=== PATIENT | male | born 1950 | race Caucasian/White ===

== ENCOUNTER 2019-03-07 07:46 | Inpatient (IN) | payer MEDICARE, SELFPAY ==
[2019-03-02 08:21] VITALS: BP 136/80; PULSE 64; RESP 16; TEMP 36.3; O2SAT 97; BMI 36.6
--- NOTE | 2019-03-02 08:39 | SDCEKG_ITS ---
Test Reason : Blood Pressure : / mmHG Vent. Rate : 064 BPM Atrial Rate : 064 BPM P-R Int : 162 ms QRS Dur : 088 ms QT Int : 378 ms P-R-T Axes : 065 035 027 degrees QTc Int : 389 ms Normal sinus rhythm Normal ECG Confirmed by ISI DAVIS, KIERSTEN ([id number]), editorial specialist ALPHONSO MACHADO ([id number]) on 03/07/2019 10:34:47 AM Referred By: Osman Escalera Confirmed By:KIERSTEN SNOWDEN MD
--- NOTE | 2019-03-02 09:13 | RAD_ITS ---
STUDY: X-RAY CHEST REASON FOR EXAM: Male, 69 years old. Preoperative evaluation. TECHNIQUE: PA and lateral views of the chest. COMPARISON: Comparison is made with prior study dated February 19, 2017. FINDINGS: The previously seen right apical nodular density has been resected. There is mild tenting of the right hemidiaphragm. Mild increased markings at the lung bases suggest bibasilar scarring. There is no demonstrated pleural abnormality. Normal size heart. Normal mediastinum and ree. There is prominence of the pulmonary hilar arteries without peripheral pulmonary vascular congestion, suggesting pulmonary hypertension. Normal visualized aortic arch and descending thoracic aorta. Normal visualized thoracic spine. Normal visualized ribs, clavicles, and shoulders. There is no demonstrated abnormality of the visualized soft tissue structures of the upper abdomen. RAD/Chest PA and Lateral IMPRESSION: Status post right upper lobectomy. Stable mild scarring at the lung bases. Electronically Signed: Jase Villeda, at 9:46 EDT , Service support ,
[2019-03-02 09:48] LABS: Absolute Lymphocyte Count 2.17 X10^3/ul (0.83-4.51); Absolute Neutrophil Count 4.2 X10^3/uL (2.0-7.7); Basophil# 0.03 X10^3/uL; Basophil% 0.4 % (0-1); Eosinophil# 0.28 X10^3/uL; Eosinophils% 3.9 % (0-5); Hematocrit 41.2 % (40-54); Hemoglobin 13.9 g/dl (13.0-16.5); Lymphocyte # 2.17 X10^3/ul (4.0); Lymphocyte % 29.8 % (19-41); Mean Corp Hgb Conc 33.7 g/gl (32-36); Mean Corpuscular Volume 85.8 fL (80-94); Mean Platelet Vol. 9.6 fl (6.2-12.0); Monocyte# 0.59 X10^3/uL; Monocyte% 8.1 % (0-10); Neutrophil # 4.17 X10^3/uL (2.7-7.7); Neutrophil % 57.4 % (47-70); Platelet Count 178 K/mm3 (150-450); RBC Distribution Width CV 13.5 % (11.6-14.6); RBC Distribution Width SD 42.5 fl (35.1-43.9); White Blood Count 7.3 K/mm3 (4.4-11.0)
[2019-03-02 09:50] LABS: POSITIVE COUNT NO; POSITIVE DIFFERENTIAL NO; POSITIVE MORPHOLOGY NO
[2019-03-02 09:59] LABS: Prothrombin Time (Protime)PT. 13.2 SECONDS (11.7-14.9)
[2019-03-02 10:00] LABS: Partial Thromboplast Time 29.7 Seconds (24.1-36.2)
[2019-03-02 10:34] LABS: AST(SGOT) 13 U/L (15-37); Alanine Aminotransfer ALT/SGPT 21 U/L (16-61); Albumin, Serum 3.8 g/dL (3.2-5.0); Alkaline Phosphatase 60 U/L (45-117); Bilirubin, Direct 0.11 mg/dL (0.00-0.30); Globulin 3.4 g/dL (2.2-4.2); Protein, Total 7.2 g/dL (6.4-8.2)
--- NOTE | 2019-03-04 11:12 | CASEMGMT ---
Call placed to patient to discuss discharge needs after upcoming surgery. Patient plans to return home with assistance from . Patient is not sure if outpatient physical therapy is set up, will be calling a place in [place] today to check on it. will assist with transportation to/from physical therapy. Patient has a walker, has a handicapped accessible bathroom at home. Patient's home is a ranch style with bedroom and bathroom on one level. There is 1 step to enter home. Informed patient that Rn-CM will likely follow up after surgery. Susan Wall LPN Clinical Support
[2019-03-07] VITALS (11 sets, daily range): BP systolic 99–156; BP diastolic 61–77; PULSE 57–78; RESP 14–18; TEMP 36–37.2; O2SAT 95–100; BMI 36.6
--- NOTE | 2019-03-07 | KNEE_PTH ---
PATIENT: LUANA RIOS LOC: [facility]3 U#:[id number] AGE/SX: 69/M ROOM: ND324 RE03/07/[address]: Dr. Osman Escalera DO : 1950 BED: 1 DIS: 03/08/2019 SPEC #: [id number] RECD: 03/07/19 14:18 STATUS: ENRIQUE REQ #: [id number] VARSHA: 03/07/19 00:[address]: Osman Escalera DEPT: SURGICAL PATHOLOGY RECD BY: Kenyon Moffett ENTERED: 03/07/19 14:18 SP TYPE: TOTAL KNEE OTHR DR: Dr. João Velarde MD Tissues: Knee, NOS Procedures: Decalcification bone/plaque Surgery Specimen Level IV HEADER OPERATION: Total knee replacement PRE-OP DIAGNOSIS: Unilateral primary osteoarthritis, left knee TISSUE SUBMITTED: Left knee MICROSCOPIC DIAGNOSIS Bone and soft tissue of left knee, total knee resection: Severe degenerative joint disease. Mild synovial hyperplasia. Polarizable crystals consistent with pseudogout. AM:mello 03/10/19 MICROSCOPIC DESCRIPTION Slides are reviewed. GROSS DESCRIPTION Received is one container designated bone and soft tissue left knee. The specimen consists of multiple fragments of may-yellow bone measuring in aggregate 17 x 10 x 1.5 cm. Also in the specimen container are multiple fragments of yellow-white soft tissue measuring in aggregate 12 x 9 x 2 cm. A number of bony fragments contain articular surfaces consistent with tibial plateau and femoral condyle and displaying prominent osteophyte formation, eburnation, and bone erosion. City Planning Engineer sections are submitted in two cassettes as follows: 1 - soft tissue, 2 - bone after decalcification. / AM:mello 03/07/19 TC:5 [facility]: [id number], [id number]
[2019-03-07] MEDS: Acetaminophen 500 MG Tablet 1000 MG PO ×3 (08:36→21:35)
[2019-03-07] MEDS: Celecoxib 200 MG Capsule 400 MG PO (08:36)
[2019-03-07] MEDS: oxyCODONE HCl Cr 10 MG Tablet PO (08:37)
[2019-03-07 08:39] LABS: Anion Gap 7 (5-15); BUN 29 mg/dL (7-18); BUN/Creat Ratio 23.4 RATIO (10-20); Calcium,Total 9.6 mg/dL (8.5-10.1); Chloride 106 mmol/L (98-107); Creatinine, Serum 1.24 mg/dL (0.70-1.30); EST Glomerular Filtration Rate 62 mL/min (>60); Est Glom Filt Rate - Afr Amer 75 mL/min (>60); Estimated Creatinine Clearance 51.45 ml/min; Glucose 201 mg/dL (74-106); Sodium Level 140 mmol/L (136-145)
[2019-03-07 08:41] LABS: Bedside Glucose 215 mg/dL (70-110)
[2019-03-07] MEDS: Cefazolin 2 GM in 0.9% Normal Saline 100 ML IV (09:49)
--- NOTE | 2019-03-07 10:52 | PCM.OPRPT ---
Report of Operation Date of Procedure: 03/07/19 Pre-Operative Diagnosis: OA left knee Post-Operative Diagnosis: same Surgery/Procedure Performed:: Left TKR Type of Anesthesia:: Spinal Anesthesiologist: Bob Schmidt Specimen's removed: bone Estimated Blood Loss (mL): 25 cc Description of Procedure: Primary Surgeon/Physician: Osman Escalera television journalist: Cristhian Celeste PA-C television journalist: Pre-Operative Diagnosis: OA left knee Post-Operative Diagnosis: same Surgery/Procedure Performed: Left TKR Estimated Blood Loss: 25 cc Specimen's Removed: bone Type of Anesthesia: spinal ASA Class: 3 Implants: [Sara Triathlon size 5 CR femur, size 5 tibia, 11 mm polyethylene, 38 mm patella ] Indications: Patient has severe end-stage osteoarthritis diagnosed via x-rays in the knee. They have failed all forms of conservative measures including activity modification, injections, anti-inflammatories, use of assistive device. The patient has pain that affects on a daily basis and prevents him from doing things that they enjoyed. They have elected to undergo the above procedure. The risks of the procedure were discussed at length and their questions were answered. Procedure Description: The patient was greeted in the preoperative area. The [left knee ] knee was then marked with a surgical marker. Patient was then taken to or Suite 2. They were administered a dose of antibiotics as well as tranexamic acid. Once adequate anesthesia was obtained and airway was secured to placed in supine position on the operating room table. A well-padded tourniquet was placed on the affected extremity. Leg was then prepped and draped in the usual sterile fashion from the knee down. Ioban was used on the skin. Surgical timeout was then performed and confirmed with all present. Six-inch Esmarch was used to examine the limb and tourniquet was then inflated to 250 mmHg. A longitudinal incision was then planned and carried out in the anterior aspect of the knee. The dissection was then carried the length of the incision the extensor mechanism was identified. Standard medial parapatellar arthrotomy was then performed revealing severe eburnation of bone and periarticular osteophytes. There is complete loss of cartilage especially in the medial compartment with varus alignment. Anterior fat pad was removed for visualization purposes and the anterior medial aspect of the tibia was skeletonized for exposure to the knee. The knee was then flexed the patella was inverted. Opening reamer was then used in the femur approximately 1 cm anterior to the attachment of the PCL. The intramedullary valgus wand was then placed in the femur set at 5? of valgus. The distal femoral cutting jig was then applied to the femur with anticipated resection of approximately 8 mm. This was then made with a oscillating saw. The sizing guide was then placed referencing off the posterior condyles and also reference off the epicondylar axis. This was measured and the appropriate size 4-in-1 cutting jig was then applied to the distal femur. Anterior posterior cuts were made followed by the anterior and posterior chamfer cuts. These bony pieces and fragments were removed and placed on the back table. Posterior retractor was then utilized and the tibia was subluxed anteriorly. Intramedullary tibial alignment jig was then applied to the tibia referencing off the medial one third of the tibial tubercle the anterior tibial spine the middle aspect of the tibiotalar joint. Also reference off patient's [place] slope. The tibial cutting jig was then pinned with anticipated resection of 2 mm off of the deficient medial tibial condyle. This cut was made with the oscillating saw. Once this was complete a laminar crystalizer operator was utilized in both medial lateral meniscus were removed and a posterior capsular osteophytes were also removed. Posterior capsule release was performed in the posterior capsule as well as the geniculate arteries are treated with the aqua Sheila. The tibia was incised and the appropriate sized tibial tray was then pinned. The femoral trial was then placed and the knee was trialed. Full flexion-extension were easily achieved. The knee seemed to balance quite nicely. Any remaining osteophytes were removed at this time. Once this was complete the patella was everted and the Liz patella reaming device was then utilized the patella was then placed in the appropriate jig and reamer was then used to remove approximately 9 mm of the undersurface of the patella. A soft tissue remaining was in the way was removed and patella trial was then placed listed maintain excellent tracking using the no thumbs technique. The tibial tray at this point was punched to accommodate the fins of the final implant. At this point cement was mixed on the back table. The trial components were removed and the knee was copiously irrigated. Did use a cocktail of injection for postoperative pain control. The final components were then cemented in the standard fashion and excess cement was removed with cement removal tools and patellar clamp is placed in the patella. As the cement had cured in full extension tourniquet was deflated and hemostasis was perfect with Bovie cautery as well as the aqua Manus. Knee is once again trialed with different size polyethylenes to ensure the full range of motion was achieved as well as excellent balancing ligamentously was achieved. At this point the knee was copiously irrigated. Final implant was then inserted locking mechanism was engaged and confirmed to be locked. The arthrotomy was then closed with #1 Vicryl aggravate type fashion interrupted. Subcutaneous tissue was closed with 0 Vicryl and surgical jolynn were placed in the skin. A occlusive silver impregnated dressing was then applied followed by well-padded sterile dressing secured with an Aiden wrap. The patient was taken to the PACU in stable condition. No complications known at this time. Postoperatively we will maintain standard total knee postoperative protocol. The use of the physician zoning assistant was integral during this procedure. They assisted with positioning placement of the tourniquet retracting closure and placement of the dressing. The procedure would have been much more difficult without their expertise and assistance - Admit VTE Documentation VTE Present on Admission: No VTE Mechan Device Prophylaxis: SCD's, Thigh High OBI Hose VTE Pharm Prophylaxis ordered?: Yes
--- NOTE | 2019-03-07 10:59 | OP.PCM_ITS ---
Report of Operation Date of Procedure: 03/07/19 Pre-Operative Diagnosis: OA left knee Post-Operative Diagnosis: same Surgery/Procedure Performed:: Left TKR Type of Anesthesia:: Spinal Anesthesiologist: Bob Schmidt Specimen's removed: bone Estimated Blood Loss (mL): 25 cc Description of Procedure: Primary Surgeon/Physician: Osman Escalera acetylene cutter: Cristhian Celeste PA-C acetylene cutter: Pre-Operative Diagnosis: OA left knee Post-Operative Diagnosis: same Surgery/Procedure Performed: Left TKR Estimated Blood Loss: 25 cc Specimen's Removed: bone Type of Anesthesia: spinal ASA Class: 3 Implants: [Sara Triathlon size 5 CR femur, size 5 tibia, 11 mm polyethylene, 38 mm patella ] Indications: Patient has severe end-stage osteoarthritis diagnosed via x-rays in the knee. They have failed all forms of conservative measures including activity modification, injections, anti-inflammatories, use of assistive device. The patient has pain that affects on a daily basis and prevents him from doing things that they enjoyed. They have elected to undergo the above procedure. The risks of the procedure were discussed at length and their questions were answered. Procedure Description: The patient was greeted in the preoperative area. The [left knee ] knee was then marked with a surgical marker. Patient was then taken to or Suite 2. They were administered a dose of antibiotics as well as tranexamic acid. Once adequate anesthesia was obtained and airway was secured to placed in supine position on the operating room table. A well-padded tourniquet was placed on the affected extremity. Leg was then prepped and draped in the usual sterile fashion from the knee down. Ioban was used on the skin. Surgical timeout was then performed and confirmed with all present. Six- inch Esmarch was used to examine the limb and tourniquet was then inflated to 250 mmHg. A longitudinal incision was then planned and carried out in the anterior aspect of the knee. The dissection was then carried the length of the incision the extensor mechanism was identified. Standard medial parapatellar arthrotomy was then performed revealing severe eburnation of bone and periarticular osteophytes. There is complete loss of cartilage especially in the medial compartment with varus alignment. Anterior fat pad was removed for visualization purposes and the anterior medial aspect of the tibia was skeletonized for exposure to the knee. The knee was then flexed the patella was inverted. Opening reamer was then used in the femur approximately 1 cm anterior to the attachment of the PCL. The intramedullary valgus wand was then placed in the femur set at 5? of valgus. The distal femoral cutting jig was then applied to the femur with anticipated resection of approximately 8 mm. This was then made with a oscillating saw. The sizing guide was then placed referencing off the posterior condyles and also reference off the epicondylar axis. This was measured and the appropriate size 4-in-1 cutting jig was then applied to the distal femur. Anterior posterior cuts were made followed by the anterior and posterior chamfer cuts. These bony pieces and fragments were removed and placed on the back table. Posterior retractor was then utilized and the tibia was subluxed anteriorly. Intramedullary tibial alignment jig was then applied to the tibia referencing off the medial one third of the tibial tubercle the anterior tibial spine the middle aspect of the tibiotalar joint. Also reference off patient's [place] slope. The tibial cutting jig was then pinned with anticipated resection of 2 mm off of the deficient medial tibial condyle. This cut was made with the oscillating saw. Once this was complete a laminar oceanologist was utilized in both medial lateral meniscus were removed and a posterior capsular osteophytes were also removed. Posterior capsule release was performed in the posterior capsule as well as the geniculate arteries are treated with the aqua Sheila. The tibia was incised and the appropriate sized tibial tray was then pinned. The femoral trial was then placed and the knee was trialed. Full flexion-extension were easily achieved. The knee seemed to balance quite nicely. Any remaining osteophytes were removed at this time. Once this was complete the patella was everted and the Liz patella reaming device was then utilized the patella was then placed in the appropriate jig and reamer was then used to remove approximately 9 mm of the undersurface of the patella. A soft tissue remaining was in the way was removed and patella trial was then placed listed maintain excellent tracking using the no thumbs technique. The tibial tray at this point was punched to accommodate the fins of the final implant. At this point cement was mixed on the back table. The trial components were removed and the knee was copiously irrigated. Did use a cocktail of injection for postoperative pain control. The final components were then cemented in the standard fashion and excess cement was removed with cement removal tools and patellar clamp is placed in the patella. As the cement had cured in full extension tourniquet was deflated and hemostasis was perfect with Bovie cautery as well as the aqua Manus. Knee is once again trialed with different size polyethylenes to ensure the full range of motion was achieved as well as excellent balancing ligamentously was achieved. At this point the knee was copiously irrigated. Final implant was then inserted locking mechanism was engaged and confirmed to be locked. The arthrotomy was then closed with #1 Vicryl aggravate type fashion interrupted. Subcutaneous tissue was closed with 0 Vicryl and surgical jolynn were placed in the skin. A occlusive silver impregnated dressing was then applied followed by well-padded sterile dressing secured with an Aiden wrap. The patient was taken to the PACU in stable condition. No complications known at this time. Postoperatively we will maintain standard total knee postoperativ e protocol. The use of the physician endodontic assistant was integral during this procedure. They assisted with positioning placement of the tourniquet retracting closure and placement of the dressing. The procedure would have been much more difficult without their expertise and assistance - Admit VTE Documentation VTE Present on Admission: No VTE Mechan Device Prophylaxis: SCD's, Thigh High OBI Hose VTE Pharm Prophylaxis ordered?: Yes
[2019-03-07] MEDS: Lactated Ringers 1,000 ML 125 ML IV (12:00)
[2019-03-07 12:41] LABS: Bedside Glucose 182 mg/dL (70-110)
[2019-03-07] MEDS: oxyCODONE 5 MG Tablet PO (15:59)
[2019-03-07] MEDS: Cefazolin 1 GM/50 ML BAG IV (17:17)
[2019-03-07] MEDS: Senna/Docusate Sodium 1 Tablet 2 TABLET PO (21:35)
[2019-03-07] MEDS: Aspirin 325 MG Tablet PO (21:35)
[2019-03-07] MEDS: Carvedilol 25 MG Tablet PO (21:36)
[2019-03-08] MEDS: Cefazolin 1 GM/50 ML BAG IV (01:11)
[2019-03-08 04:01] VITALS: BP 126/69; PULSE 75; RESP 18; TEMP 36.6; O2SAT 93
[2019-03-08] MEDS: Acetaminophen 500 MG Tablet 1000 MG PO (05:41)
[2019-03-08 07:46] LABS: Hematocrit 37.7 % (40-54); Hemoglobin 12.7 g/dl (13.0-16.5); Mean Corp Hgb Conc 33.7 g/gl (32-36); Mean Corpuscular Hgb 28.7 pg (27.0-32.0); Mean Corpuscular Volume 85.1 fL (80-94); Mean Platelet Vol. 9.6 fl (6.2-12.0); Platelet Count 165 K/mm3 (150-450); RBC Distribution Width CV 13.5 % (11.6-14.6); RBC Distribution Width SD 41.8 fl (35.1-43.9); Red Blood Count 4.43 M/mm3 (4.6-6.2); White Blood Count 9.4 K/mm3 (4.4-11.0)
--- NOTE | 2019-03-08 07:48 | PN.ORTHO_ITS ---
Subjective: Patient sitting at bedside eating breakfast. Patient states pain is well managed. Denies chest pain, shortness of breath, calf pain, nausea vomiting. Has no other Complaints and ready for discharge home today Objective: Dressings clean dry intact, negative signs or symptoms of DVT. Vital signs normal limits. Labs are still pending. Patient is afebrile, neurovascular is otherwise intact. Patient is speaking in full sentences, with no respiratory distress. - Physical Exam General: Alert, Oriented x3 HEENT: PERRLA Oral: Moist Mucosa Neurological: Cranial nerves II-XII grossly intact Psych/Mental Status: Normal Affect, Alert and oriented to time, place, person, mood and affect Vital Signs Temp Pulse Resp BP Pulse Ox 97.9 F 75 18 126/69 H 93 03/08/19 04:01 03/08/19 04:01 03/08/19 04:01 03/08/19 04:01 03/08/19 04:01 Oxygen Flow Rate (L/min) 8 Oxygen Delivery Method Room Air Weight: 104.326 kg Body Mass Index (BMI) 36.6 Finger Stick Blood Glucose 182 Intake and Output for Last 24 Hours 03/06/19 03/07/19 03/08/19 23:59 23:59 23:59 Intake Total 3550 / 3550 700 / 700 Output Total 800 / 800 600 / 600 Balance 2750 / 2750 100 / 100 Laboratory Tests Past 24 Hrs 03/07/19 03/08/19 03/08/19 08:18 07:05 07:05 WBC Pending RBC Pending Hgb Pending Hct Pending MCV Pending MCH Pending MCHC Pending RDW Pending RDW Differential Pending Plt Count Pending Sodium 140 Pending Potassium 4.0 Pending Chloride 106 Pending Carbon Dioxide 27.0 Pending Anion Gap 7 Pending BUN 29 H Pending Creatinine 1.24 Pending Estim Creat Clear Calc 51.45 Est GFR (MDRD) Af Amer 75 Pending Est GFR (MDRD) Non-Af 62 Pending BUN/Creatinine Ratio 23.4 H Pending Glucose 201 H Pending Calcium 9.6 Pending POC Glucose 03/07/19 03/07/19 12:32 08:24 POC Glucose 182 H 215 H Medical Necessity - Tobacco Use Smoking Status: Former smoker Assessment/Plan Status post left total knee arthroplasty Plan 1. Continue all pain medications as prescribed 2. Continue physical therapy today with weightbearing as tolerated with walker. 3. Aspirin 325 mg 1 p.o. every 12 hours times 30 days for postop DVT prophylaxis 4. Encourage incentive spirometry 5. Follow-up as scheduled see pink sheet 6. Discharge home today after p.m. therapy 7. Patient will continue outpatient physical therapy in [place]
--- NOTE | 2019-03-08 07:52 | DCINST_ITS ---
Discharge Diet: No Restrictions Discharge Activity: May Not Drive, May Shower, Use Walker May shower in (days): 2 Ice area for (Minutes): 20 - each hour while awake. Weight Bearing Status: Weight bearing as tolerated Elevate: Operative Extremity Additional Activity Instructions:: Wear elastic stockings for 2 weeks after your surgery. Call your doctor if your incision/area has: Continuous Slow Oozing, Sudden Increased Bleeding, Increased Pain/ Swelling, Increased Redness, Foul Smelling Discharge Call your doctor if you observe: Fever of 101 or Higher, Coldness, Increased Pain - in extremity, Numbness or Tingling, Change in Color, Calf discomfort, Uncontrolled pain Change Dressing in (Days):: 0 - and daily as needed. Remove Dressing in (days):: 8 Cleanse incision/area with: Soap & Water Allergies/Adverse Reactions: Allergies No Known Allergies Allergy (Verified 03/02/19 08:13) Medications to take at Discharge Amlodipine Besylate [Norvasc] 10 mg PO DAILY 02/19/17 Metformin HCl [Glucophage] 1,000 mg PO BIDCM 02/19/17 Carvedilol [Coreg (Beta Sophia)] 25 mg PO BID 03/02/19 Glimepiride [Amaryl] 8 mg PO DAILY 03/02/19 Indapamide [Lozol] 2.5 mg PO DAILY 03/02/19 Lisinopril [Zestril] 40 mg PO DAILY 03/02/19 Losartan Potassium [Cozaar] 100 mg PO DAILY 03/02/19 Pioglitazone HCl 30 mg PO DAILY 03/02/19 Acetaminophen [Tylenol] 1,000 mg PO Q8 #90 tab 03/08/19 Aspirin 325 mg PO BID #60 tab 03/08/19 Oxycodone [Oxyir] 5 - 10 mg PO Q4H PRN PRN 7 Days #90 tab 03/08/19 The following prescriptions were given: Oxycodone [Oxyir] 5 - 10 mg PO Q4H PRN PRN 7 Days #90 tab PRN Reason: Mod-Severe Pain (4-08/25) Acetaminophen [Tylenol] 1,000 mg PO Q8 #90 tab Aspirin 325 mg PO BID #60 tab Primary Care Physician: João Velarde MD [Primary Care Provider] - Test Results: Test results from this visit will be discussed in further detail at your follow- up appointment, if applicable. Please Follow Up With: Cristhian Celeste PA-C When: see pink sheet
[2019-03-08 07:54] LABS: Scan Indicated on CBC? Y/N NO
[2019-03-08] MEDS: Aspirin 325 MG Tablet PO (07:56)
[2019-03-08] MEDS: Pioglitazone Hydrochloride 30 MG Tablet PO (07:56)
[2019-03-08] MEDS: Glimepiride 4 MG Tablet 8 MG PO (07:59)
[2019-03-08 08:22] LABS: Anion Gap 8 (5-15); BUN 18 mg/dL (7-18); BUN/Creat Ratio 17.1 RATIO (10-20); Calcium,Total 8.8 mg/dL (8.5-10.1); Chloride 104 mmol/L (98-107); Creatinine, Serum 1.05 mg/dL (0.70-1.30); EST Glomerular Filtration Rate 75 mL/min (>60); Est Glom Filt Rate - Afr Amer 90 mL/min (>60); Estimated Creatinine Clearance 60.76 ml/min; Glucose 171 mg/dL (74-106); Potassium 3.6 mmol/L (3.5-5.1); Sodium Level 139 mmol/L (136-145)
[2019-03-08 10:00] VITALS: BP 141/75; PULSE 73; RESP 16; TEMP 36.2; O2SAT 96
[2019-03-08] MEDS: Lisinopril 40 MG Tablet PO (10:31)
[2019-03-08] MEDS: Losartan Potassium 100 MG Tablet PO (10:31)
[2019-03-08] MEDS: Indapamide 2.5 MG Tablet PO (10:32)
[2019-03-08] MEDS: amLODIPine 10 MG Tablet PO (10:32)
[2019-03-08] MEDS: Carvedilol 25 MG Tablet PO (10:35)
[2019-03-08] MEDS: oxyCODONE 5 MG Tablet PO (10:35)
--- NOTE | 2019-03-08 10:40 | CASEMGMT ---
SARANYA FREGOSO Face to Face with patient for initial transition planning/care coordination assessment. RN ZENOBIA introduced self and role at [facility]. Patient lying in bed, alert and oriented. Patient willing to participate in assessment and is able to answer all questions appropriately. Care providers, pharmacy, and demographics verified. Patient wishes to discharge home with outpatient therapy at [facility] in [place] with family providing transportation. Patient has cane, walker, shower chair, and raised toilet at home. Patient states he has no further needs or concerns at this time. CM to follow for discharge planning needs that may arise. Disposition Plan: Patient to discharge home with outpatient therapy, family support, and follow-up plans in place. Olinda ALEXANDER, RN, CM
[2019-03-08 13:30] VITALS: BP 141/75; PULSE 73; RESP 16; TEMP 36.2; O2SAT 96
== END 2019-03-08 13:52 | disposition home or self-care (01) | DRG 470 ==
PROVIDERS: Anesthesiology; Admitting Provider Orthopaedic Surgery; Referring Provider Orthopaedic Surgery; Visit Provider Orthopaedic Surgery
PROC: 0SRD0J9 Replacement of Left Knee Joint with Synthetic Substitute, Cemented, Open Approach (ICD-10-PCS; CPT 27447; principal; 2019-03-07 09:20)
DX: M17.12 Unilateral primary osteoarthritis, left knee (principal); I10 Essential (primary) hypertension; E11.9 Type 2 diabetes mellitus without complications; Z79.84 Long term (current) use of oral hypoglycemic drugs
CPT/HCPCS: 36415; 71046; 80048; 80076; 82962; 85025; 85027; 85610; 85730; 87081; 88305; 88311; 93005; 97110; 97161; 97166; 97530; C1776; J7120; A4216

== ENCOUNTER 2019-04-30 15:07 | Emergency (ER) | payer MEDICARE, SELFPAY ==
[2019-03-07 13:22] VITALS: BMI 36.6
[2019-04-30 15:10] VITALS: BP 159/78; PULSE 103; RESP 22; TEMP 37.9; O2SAT 92; BMI 35.6
[2019-04-30 15:20] VITALS: PULSE 107; RESP 14; TEMP 37.9
[2019-04-30 15:25] VITALS: BP 148/82; PULSE 101; RESP 23; O2SAT 91
--- NOTE | 2019-04-30 15:27 | ED.VISSUMM ---
- ER Visit Summary Date of Service: 04/30/19 Chief Complaint: Fever, chills and intermittent nausea and vomiting for 6 days History of Present Illness: The patient is a 69 M history of diabetes and hypertension. Prior prostate CA treated with brachii therapy. Also lung CA treated with partial lobectomy. Dolores was admitted to the hospital overnight for a right knee replacement. States is been using around 9 Motrin a day. Which he stopped taken yesterday. Since Thursday he has had intermittent nausea and vomiting. Fever and chills. Fever as high as 102.5 degrees. Denies any diarrhea. Denies dysuria but states he is peeing more frequently. Denies any abdominal pain. Mild cough no shortness of breath. No chest pain. Physical Examination: Older male vital signs are stable he does have a low-grade fever currently of 100.3 degrees. He does not look septic or toxic. He is in no distress. at bedside. HEENT exam unremarkable. Neck nontender no lymphadenopathy. Lungs clear to auscultation bilaterally. Heart regular rhythm no murmur rate about 100. Abdomen soft nontender normal bowel sounds no peritoneal signs. He is moving all 4 extremities. Nontender. Back nontender. Skin no rashes. Neurologically is awake and alert with no focal motor deficits. Test Results: CBC shows a white count of 10. Hemoglobin of 11 g a chronic anemia. Electrolytes sodium of 127. Potassium of 3.1. Gap is 7 creatinine 1.1. Liver enzymes are normal. PT/INR PTT normal. UA shows 25-50 white cells no red cells no epithelial cells 4+ bacteria. Consistent with a UTI. Culture sent. Lactic acid normal 1.3. EKG sinus rhythm rate of 95 no ischemia. Chest x-ray 2 views read both of myself and the radiologist shows no acute abnormality. Emergency Department Course and Treatment: Patient be treated with a liter normal saline. He will be worked up for an infectious etiology. Cultures will be obtained. Multiple repeat exam the patient is doing well. We did a bladder scan post voiding it over 600 cc of urine. A Romero catheter was placed. Due to his urinary retention. He has a urologist he sees in [place]. Patient is doing well. BMP unremarkable pending discharge to home. Treatment Plan: Keflex 500 4 times daily for 10 days. Follow-up with his primary care physician. Follow-up with his urologist. Disposition: Discharge Impression: Acute fever and chills Urinary tract infection Acute urinary retention Romero catheter placed by RN Mild hyponatremia This note was generated with [employer] dictation software. It may contain incorrect words, spelling, and punctuation that were not noted in review of the chart prior to signing ED Disposition - Plan for ED Patient: Referrals: João Velarde MD [Primary Care Provider] -
[2019-04-30] MEDS: 0.9% Normal Saline 1,000 ML 999 ML IV (15:33)
[2019-04-30 15:36] LABS: Absolute Lymphocyte Count 1.13 X10^3/ul (0.83-4.51); Basophil# 0.03 X10^3/uL; Basophil% 0.3 % (0-1); Eosinophil# 0.02 X10^3/uL; Eosinophils% 0.2 % (0-5); Hemoglobin 11.6 g/dl (13.0-16.5); Lymphocyte # 1.13 X10^3/ul (4.0); Lymphocyte % 10.8 % (19-41); Mean Corp Hgb Conc 34.1 g/gl (32-36); Mean Corpuscular Hgb 27.6 pg (27.0-32.0); Mean Corpuscular Volume 80.8 fL (80-94); Mean Platelet Vol. 8.8 fl (6.2-12.0); Monocyte# 1.25 X10^3/uL; Neutrophil # 7.98 X10^3/uL (2.7-7.7); Neutrophil % 76.3 % (47-70); Platelet Count 213 K/mm3 (150-450); RBC Distribution Width CV 13.9 % (11.6-14.6); Red Blood Count 4.21 M/mm3 (4.6-6.2); White Blood Count 10.5 K/mm3 (4.4-11.0)
--- NOTE | 2019-04-30 15:36 | RAD_ITS ---
STUDY: X-RAY CHEST REASON FOR EXAM: Male, 69 years old. Cough and nausea TECHNIQUE: PA and lateral views of the chest. COMPARISON: 03/02/2019 FINDINGS: EKG leads project over the chest. There are interstitial fibrotic changes of the lungs. No airspace consolidation. There is no demonstrated pleural abnormality. Normal size heart. Normal mediastinum and ree. Normal visualized pulmonary arteries. Normal visualized aortic arch and descending thoracic aorta. Normal visualized thoracic spine. Normal visualized ribs, clavicles, and shoulders. There is no demonstrated abnormality of the visualized soft tissue structures of the upper abdomen. RAD/Chest PA and Lateral IMPRESSION: No airspace consolidation or pleural effusion. Stable exam. Electronically Signed: Vinnie Aguilar MD at 15:49 EDT , Service support ,
[2019-04-30 15:37] LABS: POSITIVE COUNT NO; POSITIVE DIFFERENTIAL NO; POSITIVE MORPHOLOGY NO
[2019-04-30 15:42] LABS: International Normalized Ratio 1.2; Prothrombin Time (Protime)PT. 14.7 SECONDS (11.7-14.9)
[2019-04-30 15:43] LABS: Partial Thromboplast Time 31.6 Seconds (24.1-36.2)
[2019-04-30 15:52] LABS: ALB/GLOB Ratio 0.8 RATIO (0.9-2.4); AST(SGOT) 19 U/L (15-37); Alanine Aminotransfer ALT/SGPT 30 U/L (16-61); Albumin, Serum 3.4 g/dL (3.2-5.0); Alkaline Phosphatase 70 U/L (45-117); Anion Gap 7 (5-15); BUN 24 mg/dL (7-18); BUN/Creat Ratio 21.2 RATIO (10-20); Calcium,Total 9.6 mg/dL (8.5-10.1); Chloride 92 mmol/L (98-107); Creatinine, Serum 1.13 mg/dL (0.70-1.30); EST Glomerular Filtration Rate 69 mL/min (>60); Est Glom Filt Rate - Afr Amer 83 mL/min (>60); Estimated Creatinine Clearance 60.53 ml/min; Glucose 239 mg/dL (74-106); Potassium 3.1 mmol/L (3.5-5.1); Protein, Total 7.4 g/dL (6.4-8.2); Sodium Level 127 mmol/L (136-145)
[2019-04-30 15:59] LABS: Lactic Acid 1.3 mmol/L (0.4-2.0)
--- NOTE | 2019-04-30 16:06 | EKG12_ITS ---
Test Reason : NAUSEA Blood Pressure : / mmHG Vent. Rate : 095 BPM Atrial Rate : 095 BPM P-R Int : 152 ms QRS Dur : 086 ms QT Int : 338 ms P-R-T Axes : 038 -01 008 degrees QTc Int : 424 ms Normal sinus rhythm Inferior infarct , age undetermined Abnormal ECG Confirmed by KYUNG DAVIS, GRAHAM ([id number]), acquisitions editor ALPHONSO MACHADO ([id number]) on 05/03/2019 9:33:06 AM Referred By: ROSANNA Confirmed By:GRAHAM TRACEY MD
[2019-04-30 16:30] LABS: Mucous, Urine 0 SEEN /hpf (<or=2+)
[2019-04-30 16:33] LABS: Color, Urine Yellow (Yellow); Glucose, Dipstick 250 mg/dl (Normal); Ketone-Dipstick Negative (Negative); Leukocyte Esterase-Dipstick 500 /ul (Negative); Nitrite-Dipstick Negative (Negative); Occult Blood-Urine 50 /ul (Negative); Protein-Dipstick 15 mg/dl (Negative); Urine Bilirubin Dipstick Negative (Negative); Urine Clarity Sl. Cloudy (Clear); Urine Urobilinogen Normal (Normal)
[2019-04-30 16:48] LABS: Bacteria 4+ /hpf (None Seen); Red Blood Cells-Urine 0-5 SEEN /hpf (0-5); Squamous Epithelial Cells - UA 0-5 SEEN /hpf (0-5); White Blood Cells 25-50 SEEN /hpf (0-5)
[2019-04-30] MEDS: Ceftriaxone 1 GM/50 ML BAG IV (17:54)
[2019-04-30 17:55] VITALS: BP 164/87; PULSE 93; RESP 20; TEMP 37.7; O2SAT 94
--- NOTE | 2019-04-30 18:41 | ED.DEP ---
ED Disposition - Plan for ED Patient: Disposition: Home or Assisted Living Instructions: ED UTI Cystitis Male, ED Retention Urinary Male Prescriptions: Cephalexin [Keflex] 500 mg PO Q6 #40 cap Referrals: João Velarde MD [Primary Care Provider] - As soon as possible Additional Instructions: Follow-up with your urologist due to the urinary retention. Empty Romero catheter whenever half or full. Keflex 1 pill 4 times a day is the antibiotic for your urinary tract infection. Finish the prescription. Plenty of fluids and rest. Follow-up with your doctor this week if you are feeling worse return to the emergency department to be reevaluated and possibly admitted.
[2019-04-30] MEDS: Cephalexin 250 MG Capsule 500 MG PO (18:52)
[2019-04-30 18:54] VITALS: BP 151/85; PULSE 93; RESP 18; O2SAT 98
== END 2019-04-30 19:06 | disposition home or self-care (01) ==
PROVIDERS: Emergency Provider Emergency Medicine
DX: N39.0 Urinary tract infection, site not specified (principal); R50.9 Fever, unspecified; R33.9 Retention of urine, unspecified; E87.1 Hypo-osmolality and hyponatremia; I10 Essential (primary) hypertension; E11.9 Type 2 diabetes mellitus without complications; Z79.84 Long term (current) use of oral hypoglycemic drugs; Z79.899 Other long term (current) drug therapy
CPT/HCPCS: 51702; 71046; 80053; 81001; 83605; 85025; 85610; 85730; 87040; 87077; 87086; 87088; 87186; 93005; 96361; 96365; 99285; J7030; J7040; A4216

== ENCOUNTER 2019-05-01 10:28 | Emergency (ER) | payer MEDICARE, SELFPAY ==
[2019-04-30 15:10] VITALS: BMI 35.6
[2019-05-01 10:29] VITALS: BP 105/66; PULSE 92; RESP 14; TEMP 36.3; O2SAT 94; BMI 33.6
--- NOTE | 2019-05-01 11:14 | ED.VIS.GEN ---
History of Present Illness Chief Complaint: Complaint Informant: Patient Current Severity: Mild Narrative: The patient was seen yesterday in the emergency department for fever he was found to have a UTI he was treated per family with IV medications, Keflex, he went home he is been feeling fine all day today and then subsequently his blood culture came back for anaerobic lactose fermenting rods x1 set and he was asked to come back to the hospital. 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, he is not prone to infection or UTIs yesterday after ED therapy he felt better and wanted to go home Past Medical History - Allergies and Home Meds Allergies/Adverse Reactions: Allergies No Known Allergies Allergy (Verified 05/01/19 10:33) Primary Care Physician: João Veladre MD [Primary Care Provider] - Surgical History: noncontributory Smoking Status: Never smoker Review of Systems General: Denies: Chills, Fever, Sweats Eyes: Denies: Visual changes - bilaterally, Diplopia ENT: Denies: Rhinorrhea, Sore throat Cardiovascular: Denies: Chest pain, Palpitations Respiratory: Denies: Dyspnea, Cough, Dyspnea on exertion Gastrointestinal: Denies: Abdominal pain, Nausea, Vomiting, Diarrhea, Melena, Hematochezia Genitourinary: Denies: Dysuria, Hematuria, Frequency Musculoskeletal: Denies: Back pain, Extremity Pain Skin: Denies: Rash, Wounds Neurological: Denies: Headache, Weakness, Numbness Physical Exam Vital Signs/Narrative: Vital Signs Temp Pulse Resp BP Pulse Ox 05/01/19 10:29 97.4 F L 92 14 105/66 94 General: Well nourished, Well developed, No Acute Distress Head: Normocephalic, Atraumatic Eyes: Perrl, EOMI ENT: Moist mucous membranes, No rhinorrhea Neck: Supple, Nontender Cardiovascular: Regular rate, Regular rhythm, No murmurs Respiratory: No distress, CTA bilaterally, Chest nontender Abdomen: Soft, Nontender, Nondistended, Normal bowel sounds Back: Nontender, Normal Inspection Extremities: Nontender, No edema Skin: Normal color, No rash Neurological: Alert, Oriented x3, Cranial nerves II-XII grossly intact, Normal Strength, Normal Sensation Psychological: Normal affect, Normal Mood Diagnostic/Tx/Re-eval - Medical Decision Making Clinically patient looks well there is no signs of sepsis he states she is doing well at home the 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 differential is wide and includes Bacteroides see those reports specific bacteria and cultures are not available given all the above screening labs lactate repeat cultures IV antibiotics Patient screening labs are unremarkable except his UA continues to show signs of UTI repeat blood and urine cultures obtained he was treated with IV Zosyn and metronidazole, he remained stable here in the department his lactate is negative, at this point time we have asked the hospitalist to see the patient for admission, final disposition once seen by hospitalist Final impression Bacteremia Urinary tract infection Addendum the patient was seen by the hospitalist and the decision was made the Patient can be managed as an outpatient they have asked that he stay on the Keflex, given the wide differential of the anaerobic gram-negative silvia we will add to the Keflex Flagyl 500 3 times daily and have explained to the patient that should his symptoms change or intensified anyway he should return immediately and he should anticipate seeing his outpatient providers tomorrow he agrees to this plan ED Disposition - Plan for ED Patient: Instructions: ED UTI Cystitis Male Prescriptions: Cephalexin [Keflex] 500 mg PO Q6 #56 capsule metroNIDAZOLE [Flagyl] 500 mg PO Q8H #21 tab Referrals: João Velarde MD [Primary Care Provider] -
[2019-05-01 11:21] LABS: Absolute Lymphocyte Count 2.31 X10^3/ul (0.83-4.51); Absolute Neutrophil Count 6.9 X10^3/uL (2.0-7.7); Basophil# 0.03 X10^3/uL; Basophil% 0.3 % (0-1); Eosinophil# 0.06 X10^3/uL; Eosinophils% 0.6 % (0-5); Hematocrit 34.7 % (40-54); Hemoglobin 11.8 g/dl (13.0-16.5); Lymphocyte # 2.31 X10^3/ul (4.0); Lymphocyte % 21.2 % (19-41); Mean Corpuscular Hgb 27.4 pg (27.0-32.0); Mean Corpuscular Volume 80.7 fL (80-94); Mean Platelet Vol. 9.2 fl (6.2-12.0); Monocyte% 13.8 % (0-10); Neutrophil # 6.92 X10^3/uL (2.7-7.7); Neutrophil % 63.5 % (47-70); Platelet Count 222 K/mm3 (150-450); RBC Distribution Width CV 14.1 % (11.6-14.6); RBC Distribution Width SD 41.5 fl (35.1-43.9); White Blood Count 10.9 K/mm3 (4.4-11.0)
[2019-05-01 11:22] LABS: POSITIVE COUNT NO; POSITIVE DIFFERENTIAL NO; POSITIVE MORPHOLOGY NO
[2019-05-01 11:26] LABS: Anion Gap 11 (5-15); BUN 21 mg/dL (7-18); BUN/Creat Ratio 16.5 RATIO (10-20); Calcium,Total 9.4 mg/dL (8.5-10.1); Chloride 91 mmol/L (98-107); Creatinine, Serum 1.27 mg/dL (0.70-1.30); EST Glomerular Filtration Rate 60 mL/min (>60); Est Glom Filt Rate - Afr Amer 73 mL/min (>60); Estimated Creatinine Clearance 53.86 ml/min; Glucose 308 mg/dL (74-106); Potassium 2.9 mmol/L (3.5-5.1); Sodium Level 130 mmol/L (136-145)
[2019-05-01 11:48] VITALS: BP 122/59; PULSE 78; RESP 16; TEMP 36.9; O2SAT 92
[2019-05-01 11:59] LABS: Lactic Acid 1.8 mmol/L (0.4-2.0)
[2019-05-01 12:17] VITALS: BP 109/58; PULSE 79; RESP 20; TEMP 36.9; O2SAT 93
[2019-05-01 12:27] LABS: Color, Urine Yellow (Yellow); Glucose, Dipstick 1000 mg/dl (Normal); Ketone-Dipstick 5 mg/dl (Negative); Leukocyte Esterase-Dipstick 500 /ul (Negative); Nitrite-Dipstick Negative (Negative); Occult Blood-Urine 250 /ul (Negative); Protein-Dipstick 100 mg/dl (Negative); Specific Gravity, Urine 1.015 (1.002-1.030); Urine Bilirubin Dipstick Negative (Negative); Urine Clarity Cloudy (Clear); Urine Urobilinogen 1 mg/dl (Normal)
[2019-05-01 12:33] LABS: Bacteria 2+ /hpf (None Seen); Mucous, Urine 2+ /hpf (<or=2+); Red Blood Cells-Urine 10-25 SEEN /hpf (0-5); Squamous Epithelial Cells - UA 0-5 SEEN /hpf (0-5); White Blood Cells >100 SEEN /hpf (0-5)
[2019-05-01 13:15] VITALS: BP 130/69; PULSE 82; PULSE 83; RESP 15; RESP 20; TEMP 36.6; O2SAT 95; O2SAT 96
--- NOTE | 2019-05-01 13:20 | PN_ITS ---
Subjective: 69-year-old male who presents to the hospital because he was called back to the ER because of preliminarily positive blood cultures for gram-negative silvia. His source is the urine which he was seen for yesterday. He states that over the last week he has been significantly ill at home with intermittent fevers and presented to his primary care doctor who thought that he might be having the flu and that he would probably be getting over it. However yesterday he stated that since he was not getting better he came to the ER. In the ER yesterday his white count was 10 and he was tachycardic, tachypneic, with a fever. He was given a dose of Rocephin and his first dose of Keflex and sent home. He came back to the ER today because of his blood cultures preliminarily coming positive however he has not had a fever in 24 hours, his white count is still 10 he is no longer tachycardic nor tachypneic and he feels much better. Vitals/I&O's: Vital Signs Temp Pulse Resp BP Pulse Ox 98.5 F 79 20 H 109/58 L 93 05/01/19 12:17 05/01/19 12:17 05/01/19 12:17 05/01/19 12:17 05/01/19 12:17 Oxygen Delivery Method Room Air Weight: 221 lb 1.978 oz Body Mass Index (BMI) 33.6 Finger Stick Blood Glucose 182 General: Alert, Oriented x3, Cooperative, No apparent distress HEENT: Atraumatic, PERRLA, EOMI, Normocephalic Oral: Moist Mucosa Neck: Supple, No JVD Lungs: Clear to auscultation, Normal air movement, No rhonchi, No wheeze, No rales Cardiovascular: Regular rate, Regular Rhythm, Normal S1, Normal S2, No murmurs Abdomen: Soft, Non Tender, Non-Distended, No Hepato-splenomegaly Extremities: No edema, Capillary Refill Less than 3 Seconds Skin: No rashes, No breakdown Neurological: Neuro grossly intact, Sensory exam intact to light touch and pain Psych/Mental Status: Normal Affect, Appropriate Laboratory Results 05/01/19 10:45: WBC 10.9, RBC 4.30 L, Hgb 11.8 L, Hct 34.7 L, MCV 80.7, MCH 27.4, MCHC 34.0, RDW 14.1, RDW Differential 41.5, Plt Count 222, MPV 9.2, Immature Gran % (Auto) 0.600, Neut % (Auto) 63.5, Lymph % (Auto) 21.2, [place]ahan % (Auto) 13.8 H, Eos % (Auto) 0.6, Baso % (Auto) 0.3, Absolute Neuts (auto) 6.9, Absolute Lymphs (auto) 2.31, Total Counted Not Reportable 05/01/19 10:45: Sodium 130 L, Potassium 2.9 L, Chloride 91 L, Carbon Dioxide 28.0, Anion Gap 11, BUN 21 H, Creatinine 1.27, Estim Creat Clear Calc 53.86, Est GFR (MDRD) Af Amer 73, Est GFR (MDRD) Non-Af 60, BUN/Creatinine Ratio 16.5, Glucose 308 H, Calcium 9.4 05/01/19 11:25: Lactic Acid 1.8 05/01/19 12:14: Urine Color Yellow, Urine Clarity Cloudy, Urine pH 6.0, Ur Specific [place] 1.015, Urine Protein 100 H, Urine Glucose (UA) 1000 H, Urine Ketones 5 H, Urine Occult Blood 250 H, Urine Nitrite Negative, Urine Bilirubin Negative, Urine Urobilinogen 1 H, Ur Leukocyte Esterase 500 H, Urine RBC 10-25 SEEN, Urine WBC >100 SEEN, Ur Squamous Epith Cells 0-5 SEEN, Urine Bacteria 2+, Urine Mucus 2+ Medical Necessity - Tobacco Use Smoking Status: Never smoker Assessment/Plan 1. UTI with gram-negative bacteremia -Still awaiting positive identification of cultures however I did give the option of the patient to be admitted to wait for cultures to finalize and be sure that we have him on the right antibiotic however he stated that he would rather go home since he is feeling better -He left the Keflex prescription that he was given yesterday in the ER at home and therefore I will provide him with a new prescription for Keflex -I explained to him that if he worsens for some reason to get worse over the next several days that he can always come back to the hospital if he needs IV therapy -I will try to monitor the sensitivities to see if any changes need to be made to his antibiotic regimen -He did receive a dose of Rocephin yesterday afternoon as well as a dose of Flagyl and Zosyn today -Also repeat blood cultures and urine cultures were obtained today as well 2. DM 2 -Blood sugars are rising in the setting of an infection -He is on metformin and glimepiride which she can continue at home as well as Actos 3. Hypokalemia -Potassium of 2.9 today and it was replaced orally by ED physician -He will need to have a BMP follow-up as an outpatient by his primary care physician 4. Hypertension -Blood pressure is stable -Continue with Norvasc, Coreg, lisinopril Code Visit Inpatient E&M: 18538 Subs Hosp L3
[2019-05-01 14:42] VITALS: BP 112/64; PULSE 77; RESP 22; O2SAT 95
--- NOTE | 2019-05-01 14:43 | ED.RN ---
Patient requesting to be discharged home after speaking to 2 different hospitalists. discharge instructions given and explained to the patient. denies any questions at this time and states understanding.
== END 2019-05-01 14:43 | disposition home or self-care (01) ==
LOC: ED 11:15
PROVIDERS: Emergency Provider Emergency Medicine
DX: N39.0 Urinary tract infection, site not specified (principal); R78.81 Bacteremia; B96.89 Other specified bacterial agents as the cause of diseases classified elsewhere; I10 Essential (primary) hypertension; E11.9 Type 2 diabetes mellitus without complications; E87.6 Hypokalemia; Z79.84 Long term (current) use of oral hypoglycemic drugs; Z79.899 Other long term (current) drug therapy
CPT/HCPCS: 80048; 81001; 83605; 85025; 87040; 87086; 96361; 96365; 96366; 96367; 99283; J7030; J7040; A4216

== ENCOUNTER 2025-06-19 18:20 | Emergency (ER) | payer MEDICARE, SELFPAY ==
[2025-06-19] VITALS (7 sets, daily range): BP systolic 79–153; BP diastolic 58–92; PULSE 86–127; RESP 16–23; TEMP 36.4–37; O2SAT 95–100; BMI 23.1
--- NOTE | 2025-06-19 18:53 | EKG12_ITS ---
Test Reason : DYSRHYTHMIA Blood Pressure : */* mmHG Vent. Rate : 100 BPM Atrial Rate : * BPM P-R Int : * ms QRS Dur : 78 ms QT Int : 284 ms P-R-T Axes : * 0 10 degrees QTcB Int : 366 ms Atrial fibrillation Low voltage QRS Septal infarct , age undetermined Inferior infarct (cited on or before 30-Apr-2019) Abnormal ECG Confirmed by KYUNG DAVIS, GRAHAM ([id number]), commercial production editor MARKO RENDON ([id number]) on 06/21/2025 9:01:47 AM Referred By: Confirmed By: GRAHAM TRACEY MD
--- NOTE | 2025-06-19 18:53 | EKG12_ITS ---
Test Reason : DYSRHYTHMIA Blood Pressure : */* mmHG Vent. Rate : 100 BPM Atrial Rate : * BPM P-R Int : * ms QRS Dur : 78 ms QT Int : 284 ms P-R-T Axes : * 0 10 degrees QTcB Int : 366 ms Atrial fibrillation Low voltage QRS Septal infarct , age undetermined Inferior infarct (cited on or before 30-Apr-2019) Abnormal ECG Confirmed by KYUNG DAVIS, GRAHAM ([id number]), photo editor MARKO RENDON ([id number]) on 06/21/2025 9:01:47 AM Referred By: Confirmed By: GRAHAM TRACEY MD
--- NOTE | 2025-06-19 19:05 | RAD_ITS ---
PROCEDURE: CHEST PA AND LATERAL 06/19/2025 REASON FOR EXAM: DYSPNEA WITH ACTIVITY, HISTORY OF STAGE IV NON-SMA TECHNIQUE: CHEST PA AND LATERAL COMPARISON: Chest x-ray 04/30/2019. FINDINGS: Hardware: Monitor electrodes overlie the chest. Heart: No cardiomegaly. Tortuosity in the thick calcifications of the aorta. Mediastinum: Unremarkable. Lungs: Worsening airspace opacities in the lower lungs with obliteration of the costophrenic angles consistent with pleural effusions. Bones: No acute bony abnormalities. RAD/Chest PA and Lateral IMPRESSION: Lower lungs airspace opacities and pleural effusions may represent CHF or pulmo nary edema. Reading Location: [id number]
--- NOTE | 2025-06-19 19:05 | RAD_ITS ---
PROCEDURE: CHEST PA AND LATERAL 06/19/2025 REASON FOR EXAM: DYSPNEA WITH ACTIVITY, HISTORY OF STAGE IV NON-SMA TECHNIQUE: CHEST PA AND LATERAL COMPARISON: Chest x-ray 04/30/2019. FINDINGS: Hardware: Monitor electrodes overlie the chest. Heart: No cardiomegaly. Tortuosity in the thick calcifications of the aorta. Mediastinum: Unremarkable. Lungs: Worsening airspace opacities in the lower lungs with obliteration of the costophrenic angles consistent with pleural effusions. Bones: No acute bony abnormalities. RAD/Chest PA and Lateral IMPRESSION: Lower lungs airspace opacities and pleural effusions may represent CHF or pulmo nary edema. Reading Location: [id number]
[2025-06-19 19:13] LABS: Hematocrit 32.9 % (40-54); Hemoglobin 10.9 g/dL (13.0-16.5); Immature Granulocytes Count 0.030 X10^3/uL (0.0-0.0); Mean Corp Hgb Conc 33.1 g/dL (32-36); Mean Corpuscular Volume 78.0 fL (80-94); Mean Platelet Vol. 8.7 fl (6.2-12.0); NRBC Flagged by Analyzer 0 % (0-5); POSITIVE DIFFERENTIAL YES; Platelet Count 136 K/mm3 (150-450); RBC Distribution Width CV 16.3 % (11.6-14.6); RBC Distribution Width SD 45.9 fl (35.1-43.9); Red Blood Count 4.22 M/mm3 (4.6-6.2); White Blood Count 4.2 K/mm3 (4.4-11.0)
[2025-06-19] MEDS: APIXABAN 5 MG TABLET PO (19:19)
[2025-06-19 19:41] LABS: AST(SGOT) 12 U/L (<=37); Alanine Aminotransfer ALT/SGPT 9 U/L (<=46); Albumin, Serum 3.4 g/dL (3.4-4.8); Alkaline Phosphatase 69 U/L (40-129); Anion Gap 14 (5-15); BUN 16 mg/dL (4-19); BUN/Creat Ratio 17.1 RATIO (10-20); Calcium,Total 9.1 mg/dL (7.6-11.0); Carbon Dioxide 20.0 mmol/L (21.0-32.0); Chloride 98 mmol/L (98-108); Estimated Creatinine Clearance 67.42 ml/min (50-250); Globulin 2.3 g/dL (2.2-4.2); Glucose 176 mg/dL (70-99); Potassium 4.2 mmol/L (3.3-5.1)
--- NOTE | 2025-06-19 20:47 | EX.ED.DYSGE1 ---
HPI History of Present Illness Chief Complaint: Palpitations Detail of Chief Complaint: Sent to ER because of irregular heartbeat Informant: patient and family Onset/Context/Timing Onset: - (Unknown) Context: - (Unknown) Timing: - (Unknown) Quality: Fast irregular heartbeat Location: Cardiovascular Current Severity: Patient is for symptomatic Worsened by: Unknown since asymptomatic Relieved by: Unknown Associated Symptoms Associated Symptoms: Asymptomatic Narrative Narrative: Patient is a 75-year-old male with metastatic non-small cell carcinoma of the lung who was sent to the ER because of fast heart rate. He denies chest discomfort, pressure, tightness or heaviness. He denies increased shortness of breath. He denies pleuritic chest pain. He has a slight cough which is chronic. Cough is nonproductive. He denies leg pain, swelling discoloration. He denies black or maroon-colored stool. He denies orthostatic symptoms. He has abnormal movement of his lips. He has never been diagnosed with tardive dyskinesia. He is on duloxetine. and family member states has had this for years. Prior similar symptoms: Yes Recent Illness/Hospitalization: Yes [facility] Medical History Prostate cancer Lung cancer Home Medications ?Medication ?Instructions ?Recorded ?Last Taken ?Type amlodipine 10 mg tablet (Norvasc) 10 mg PO DAILY BP 02/19/17 03/07/19 06:30 History metformin 500 mg tablet 1,000 mg PO BIDCM DIABETES 02/19/17 Unknown History carvedilol 25 mg tablet 12.5 mg PO BID BP 03/02/19 Unknown History glimepiride 4 mg tablet 8 mg PO DAILY DIABETES 03/02/19 Unknown History indapamide 2.5 mg tablet 2.5 mg PO DAILY BP 03/02/19 03/07/19 06:30 History lisinopril 40 mg tablet (Zestril) 40 mg PO DAILY BP 03/02/19 03/07/19 06:30 History losartan 100 mg tablet 100 mg PO DAILY BP 03/02/19 03/07/19 06:30 History pioglitazone 30 mg tablet 30 mg PO DAILY BP 03/02/19 Unknown History cephalexin 500 mg capsule 500 mg PO Q6 #40 caps 04/30/19 Unknown Rx cephalexin 500 mg capsule 500 mg PO Q6 ##56 05/01/19 Unknown Rx metronidazole 500 mg tablet 500 mg PO Q8H #21 tabs 05/01/19 Unknown Rx albuterol sulfate 90 mcg/actuation 2 puff inhalation 06/19/25 Unknown History aerosol inhaler atorvastatin 10 mg tablet 10 mg PO DAILY 06/19/25 Unknown History duloxetine 60 mg capsule,delayed 60 mg PO DAILY 06/19/25 Unknown History release fluconazole 100 mg tablet 100 mg PO DAILY 06/19/25 Unknown History metoprolol succinate 25 mg 25 mg PO DAILY #30 tabs 06/19/25 Unknown Rx tablet,extended release 24 hr pantoprazole 20 mg tablet,delayed 20 mg PO DAILY 06/19/25 Unknown History release sucralfate 1 gram tablet 1 g PO TID 06/19/25 Unknown History tirzepatide 5 mg/0.5 mL 7.5 mg subcut QWEEK 06/19/25 Unknown History subcutaneous pen injector (Mounjaro) warfarin 5 mg tablet 5 mg PO DAILY #30 tabs 06/19/25 Unknown Rx Allergy/AdvReac Type Severity Reaction Status Date / Time No Known Allergies Allergy Verified 06/19/25 18:22 Family History no significant family his Surgical History History of lung surgery History of knee replacement Social History (Updated 06/19/25 @ 20:[address] Fredo Lucas MD) household members: spouse Smoking Status: Former smoker ROS ROS ED Constitutional Constitutional ED: Reports weight loss; Denies chills, fever(s) or subjective Eyes Eyes: Denies blurry vision or change in vision ENT ENT ED: Denies ear pain or rhinorrhea Cardiovascular Cardiovascular: Denies chest pain, orthopnea, palpitations, paroxysmal nocturnal dyspnea or racing heartbeat Respiratory/Chest Respiratory/Chest: Denies cough, dyspnea, dyspnea on exertion, orthopnea or paroxysmal nocturnal dyspnea Gastrointestinal Gastrointestinal: Denies abdominal pain, diarrhea, melena or vomiting Genitourinary Genitourinary ED: Denies dysuria, hematuria or urinary frequency Musculoskeletal Musculoskeletal: Denies arthralgias or myalgias Integumentary Denies rash Neurologic Neurologic: Denies headache(s) or weakness Psychiatric Psychiatric: Denies anxiety or depression Hematologic/Lymphatic Hematologic/Lymphatic: Reports systems reviewed and no addt'l complaints, except as documented EXAM Physical Exam Const Vital Signs: 06/19/25 18:21 06/19/25 18:29 06/19/25 18:29 Temperature 98 F 97.5 F L Temperature Source Oral Oral Pulse Rate 97 127 H Respiratory Rate 16 18 Respiratory Effort Short of Breath Blood Pressure 79/58 L 144/92 H Blood Pressure Mean 65 109 Pulse Ox 98 99 Oxygen Delivery Method Room Air Room Air 06/19/25 19:21 06/19/25 19:22 06/19/25 20:00 Temperature 98.6 F 98.6 F Temperature Source Oral Oral Pulse Rate 86 93 106 H Respiratory Rate 16 22 H Respiratory Effort Blood Pressure 147/87 H 143/84 H 153/89 H Blood Pressure Mean 107 103 110 Pulse Ox 100 95 100 Oxygen Delivery Method Room Air Room Air Room Air 06/19/25 20:00 Temperature Temperature Source Pulse Rate Respiratory Rate Respiratory Effort Blood Pressure 153/89 H Blood Pressure Mean 110 Pulse Ox Oxygen Delivery Method Positive well nourished and well developed Constitutional Narrative: Pleasant elderly gentleman who is hard of hearing. His initial blood pressure was 79 and 50 8 repeat was 153/89. General Appearance ED: well developed and pallor HEENT Reports moist mucous membranes HEENT Narrative: Head is atraumatic normocephalic. Ears normal. Nares patent. Eyes PERRL and EOMs intact bilaterally General Eye ED: Negative for pale conjunctiva or scleral icterus Neck no lymphadenopathy, supple and no JVD Chest Wall inspection of chest normal and palpation of chest normal Resp normal respiratory effort and No clear to auscultation bilaterally Resp Narrative: Abnormal breath sounds on the left. There is no egophony or increased vocal fremitus. Cardio no murmurs Rate: tachycardic Rhythm: abnormal rhythm irregularly irregular GI normal to inspection, nondistended, normoactive bowel sounds, non-tender, non-distended and no masses; Negative for hepatosplenomegaly Back/Spine no CVA tenderness Extremity normal to inspection General Extremety ED: Negative for edema or tenderness General Extremity: Negative for edema Neuro oriented x3, CN's II-XII intact bilaterally and no sensory deficits noted Sensorium / Orientation: alert Motor Exam: strength 5/5 throughout Psych mental status grossly normal Skin no rashes or lesions noted, no wounds and skin turgor normal General Skin Exam: pallor; Negative for jaundice MDM MDM MDM Narrative Medical decision making narrative: Patient with A-fib RVR. Initially hypotensive. Repeat without intervention is elevated. He is presently on no anticoagulant. Since he appears pale will obtain a CBC to assess H&H. BMP to assess renal function. Has had A-fib in the past and has no chest pain dyspnea orthopnea opponent was not obtained. History & Record Review Additional record(s) reviewed:: Prior ED visit (He has not been seen in the ER since 2019. He was seen for urinary tract infection and fever.) Lab Data Labs: Laboratory Results - last 24 hr 06/19/25 19:02 WBC 4.2 L RBC 4.22 L Hgb 10.9 L Hct 32.9 L MCV 78.0 L MCH 25.8 L MCHC 33.1 RDW Std Deviation 45.9 H RDW Coeff of Alex 16.3 H Plt Count 136 L MPV 8.7 Immature Gran % (Auto) 0.700 Neut % (Auto) 69.1 Lymph % (Auto) 10.9 L [place] % (Auto) 17.1 H Eos % (Auto) 1.7 Baso % (Auto) 0.5 Absolute Neuts (auto) 2.9 Absolute Lymphs (auto) 0.46 L Nucleated RBC % 0 Sodium 132 L Potassium 4.2 Chloride 98 Carbon Dioxide 20.0 L Anion Gap 14 BUN 16 Creatinine 0.93 Estim Creat Clear Calc 67.42 Est GFR (MDRD) Non-Af 87 BUN/Creatinine Ratio 17.1 Glucose 176 H Calcium 9.1 Total Bilirubin 0.33 AST 12 ALT 9 Alkaline Phosphatase 69 Total Protein 5.7 L Albumin 3.4 Globulin 2.3 Albumin/Globulin Ratio 1.5 Radiography Chest X-Ray - ED: 2 View and Read by ED Physician (Patient has areas of opacification left side most likely due to his cancer with atelectasis. There is also evidence of lobectomy on the right. Inspiratory volume is limited.) Diagnostic Testing: Clinical Impression(s) from Imaging Studies Chest X-Ray 06/19/25 19:05 IMPRESSION: Lower lungs airspace opacities and pleural effusions may represent CHF or pulmonary edema. Reading Location: [facility] EKG Initial EKG: Attestation: I personally reviewed and interpreted this EKG as follows: Interpretation: Atrial Fibrillation (Rate is 100. He has low voltage. Has decreased anterior force. He has some nonseptic changes. QRS duration 78 ms. QT duration 294 ms. [place] is normal.) Treatment and Re-Evaluation :: Initially IV metoprolol was ordered. Since his heart rate slowed down he was treated with p.o. metoprolol and started on Eliquis. Case was discussed with cardiology, Dr. Maurilio Isaac. Patient is to contact the office tomorrow for follow-up appointment. Comments:: Patient was prescribed Coumadin because his insurance plan would not cover Eliquis or Xarelto. Discharge Plan Triage Chief Complaint: Palpitations ED Provider: Fredo Lucas Dx/Rx/DC Orders Clinical Impression: Atrial fibrillation with rapid ventricular response, Metastatic non-small cell lung cancer, Transient hypotension, Elevated blood pressure reading with diagnosis of hypertension Instructions: ED AFIB Prescriptions: New warfarin 5 mg tablet 5 mg PO DAILY Qty: 30 0RF metoprolol succinate 25 mg tablet extended release 24 hr 25 mg PO DAILY Qty: 30 0RF No Action metformin 500 MG tablet 1,000 mg PO BIDCM amlodipine [Norvasc] 10 MG tablet 10 mg PO DAILY carvedilol 25 MG tablet 12.5 mg PO BID indapamide 2.5 MG tablet 2.5 mg PO DAILY glimepiride 4 MG tablet 8 mg PO DAILY pioglitazone 30 MG tablet 30 mg PO DAILY lisinopril [Zestril] 40 MG tablet 40 mg PO DAILY losartan 100 MG tablet 100 mg PO DAILY cephalexin 500 MG capsule 500 mg PO Q6 Qty: 40 0RF cephalexin 500 MG capsule 500 mg PO Q6 Qty: 56 0RF metronidazole 500 MG tablet 500 mg PO Q8H Qty: 21 0RF atorvastatin 10 mg tablet 10 mg PO DAILY albuterol sulfate 90 mcg/actuation HFA aerosol inhaler 2 puff inhalation fluconazole 100 mg tablet 100 mg PO DAILY duloxetine 60 mg capsule,delayed release(DR/EC) 60 mg PO DAILY Mounjaro 5 mg/0.5 mL pen injector 7.5 mg subcut QWEEK sucralfate 1 gram tablet 1 g PO TID pantoprazole 20 mg tablet,delayed release (DR/EC) 20 mg PO DAILY Primary Care Provider: João Velarde Referrals: João Velarde MD [Primary Care Provider] - Print Language: Guinean Disposition Disposition: Home, Self Care
== END 2025-06-19 21:11 | disposition home or self-care (01) ==
PROVIDERS: Emergency Provider Emergency Medicine; Visit Provider Emergency Medicine
DX: R00.2 Palpitations (principal); I48.91 Unspecified atrial fibrillation; I10 Essential (primary) hypertension; Z87.891 Personal history of nicotine dependence; I95.9 Hypotension, unspecified; Z85.118 Personal history of other malignant neoplasm of bronchus and lung; Z85.46 Personal history of malignant neoplasm of prostate; Z96.659 Presence of unspecified artificial knee joint
CPT/HCPCS: 71046; 80053; 85025; 93005; 99283